=== PATIENT | male | born 1940 | race Caucasian/White ===

== ENCOUNTER 2023-02-04 16:10 | Emergency (ER) | payer MEDICARE, BC, SELFPAY ==
[2023-02-04] VITALS (14 sets, daily range): BP systolic 159–166; BP diastolic 84–123; PULSE 91–113; RESP 17–25; TEMP 36.5; O2SAT 96–100
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
--- NOTE | 2023-02-04 16:27 | NUR.NOTE ---
Referral to PCP to make an apt for ultrasound for lower extremity for DVT rule out per Dr. Richey. Put the referral on care managements list for f/u assistance.Nursing Note:
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
[2023-02-04] MEDS: Normal Saline - Diluent 50 ML VIAL IJ (17:32)
[2023-02-04] MEDS: Omnipaque 350 MG/ML 100 ML BTL IJ (17:32)
[2023-02-04 17:35] LABS: Abs Immature Grans 0.07 10^3/uL (0.0-0.06); Absolute Basophil Count 0.05 10^3/uL (0.0-0.2); Absolute Eosinophil Count 0.13 10^3/uL (0.0-0.7); Absolute Lymphocyte Count 1.54 10^3/uL (1.2-3.4); Absolute Monocyte Count 0.55 10^3/uL (0.1-0.8); Basophils % 0.6; Eosinophils % 1.7; HGB 16.4 g/dL (13.5-17.5); Immature Grans % 0.9; Lymphocytes % 19.9; MCH 34.1 pg (27.0-33.0); MCHC 35.7 % (32.0-36.0); MCV 96 fL (80-95); MPV 9.2 fL (8.0-11.0); Monocytes % 7.1; Neutrophils % 69.8; Platelet Count 181 10^3/uL (130-400); RBC 4.81 10^6/uL (4.36-5.78); RDW 12.5 % (11.8-14.1); RDW-SD 45.1 fL; WBC 7.74 10^3/uL (4.4-10.8)
[2023-02-04] MEDS: ACETAMINOPHEN 1,000 MG/100 ML BTL 400 MG IVPB (17:37)
[2023-02-04] MEDS: Normal Saline 500 ML IV (17:37)
[2023-02-04 17:55] LABS: ALT 33 U/L (16-63); AST 25 U/L (15-37); Alkaline Phosphatase 72 U/L (46-116); Anion Gap 11.9 mmol/L (3-11); BUN 19 mg/dL (7-18); Bilirubin, Total 0.9 mg/dL (0.2-1.0); CO2 24.1 mmol/L (21.0-32.0); CREATININE 1.2 mg/dL (0.70-1.30); Chloride 102 mmol/L (98-107); Estimated GFR 61.13 (mL/min/1.73m2); Glucose 124 mg/dL (74-106); Lipase 29 U/L (16-77); Magnesium 1.7 mg/dL (1.8-2.4); Potassium 3.7 mmol/L (3.5-5.1); Sodium 138 mmol/L (136-145); Total Protein 7.2 g/dL (6.4-8.2); Troponin I < 50 ng/L (<or=60)
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
[2023-02-04 18:09] LABS: ETHANOL BLOOD < 3.0 mg/dL (<10)
[2023-02-04] MEDS: MORPHine 4 MG/ML SYR IVP (18:28)
[2023-02-04 18:29] LABS: Bilirubin Negative (Negative); Blood Large (Negative); Clarity Sl Cloudy (Clear); Glucose Negative (Negative); Ketones 15 mg/dL (Negative); Leukocyte Esterase Negative (Negative); Nitrite Negative (Negative); Urobilinogen 0.2 mg/dL (Up to 0.2)
[2023-02-04 18:37] LABS: Epithelial Cells Rare HPF (Negative); RBC >50 HPF (0-2); WBC 0-2 HPF (0-5)
[2023-02-04 18:38] LABS: Bacteria Negative HPF (Negative); C & S Indicated? No; Casts Negative LPF (Negative); Crystals Negative HPF (Negative); Mucus Negative (Negative)
[2023-02-04 18:39] LABS: *AMPHETAMINES SCREEN URINE Negative (Negative); *BARBITURATES SCREEN URINE Negative (Negative); *BENZODIAZEPINES SCREEN URINE Negative (Negative); Cannabinoids THC Negative (Negative); Cocaine Screen,Urine Negative (Negative); METHADONE URINE SCREEN Negative (Negative); OPIATES URINE SCREEN Negative (Negative)
--- NOTE | 2023-02-04 18:39 | NUR.NOTE ---
Nursing Note: daughters phone number: Crystal Masters
[2023-02-04 18:46] LABS: Tricyclic Antidepressants Negative (Negative)
--- NOTE | 2023-02-04 18:50 | NUR.NOTE ---
Nursing Note: nurse to nurse report given to Roger COYNE at [facility].
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
== END 2023-02-04 19:14 | disposition short-term general hospital (02) ==
LOC: ER 18:28
PROVIDERS: Emergency Provider Emergency Medicine
DX: S06.5X1A Traumatic subdural hemorrhage with loss of consciousness of 30 minutes or less, initial encounter (principal); R40.2412 Glasgow coma scale score 13-15, at arrival to emergency department; S42.252A Displaced fracture of greater tuberosity of left humerus, initial encounter for closed fracture; R31.9 Hematuria, unspecified; E83.42 Hypomagnesemia; D75.89 Other specified diseases of blood and blood-forming organs; K80.20 Calculus of gallbladder without cholecystitis without obstruction; K57.30 Diverticulosis of large intestine without perforation or abscess without bleeding; V23.49XA Other motorcycle driver injured in collision with car, pick-up truck or van in traffic accident, initial encounter; Y92.410 Unspecified street and highway as the place of occurrence of the external cause; Y93.89 Activity, other specified; Y99.9 Unspecified external cause status
CPT/HCPCS: 51702; 74177; 76604; 76705; 76857; 80053; 80307; 83690; 86850; 86900; 86901; 90472; 96365; 96368; 96375; 99291; 70450; 71260; 72125; 73090; 73130; 73200; 80320; 81003; 81015; 83735; 84484; 85025; J0131; J1953; J2270; J3490